=== PATIENT | male | born 1960 | race Caucasian/White ===

== ENCOUNTER 2016-06-10 16:06 | Emergency (ER) | payer OTHER ==
[~2016-06-10] VITALS: Ht 172.7 cm; Wt 96.0 kg
[~2016-06-10 16:06] MED LIST: AMLO5 PO; ASPI-110 PO; ATEN25TA PO; AZIT250T3 PO; BENA25TA3 PO; BENZ100 PO; FOLI1TAB4 PO; HYDR50TA94 PO; LIPI40TA PO; MEDR4PAK PO; OMEP20TA PO; POTA-163 PO; PRAV20TA2 PO; SERT-129 PO; TAMS5CAP PO
[2016-06-10 16:08] VITALS: BP 167/101; PULSE 89; RESP 18; TEMP 97.7; O2SAT 98
[2016-06-10 17:05] VITALS: BP 167/97; PULSE 85; RESP 16; O2SAT 97
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
[2016-06-10 17:52] LABS: AUTOMATED NEUTROPHIL # 1.7 TH/MM3 (1.8-7.7); BASOPHIL # 0.1 TH/MM3 (0-0.2); BASOPHIL % 1.4 % (0.0-2.0); EOSINOPHIL # 0.1 TH/MM3 (0-0.4); EOSINOPHIL % 1.1 % (0.0-4.0); HEMATOCRIT 38.4 % (39.0-51.0); HEMO FLAGS DIFF FINAL; LYMPH % 45.7 % (9.0-44.0); LYMPHOCYTE # 2.2 TH/MM3 (1.0-4.8); MEAN CELL VOLUME 89.7 FL (80.0-100.0); MEAN CORPUSCULAR HEMOGLOBIN 30.1 PG (27.0-34.0); MEAN CORPUSCULAR HGB CONC 33.5 % (32.0-36.0); MONO % 15.6 % (0.0-8.0); NEUT % 36.2 % (16.0-70.0); PLATELET COUNT 176 TH/MM3 (150-450); RED BLOOD COUNT 4.27 MIL/MM3 (4.50-5.90); WHITE BLOOD COUNT 4.7 TH/MM3 (4.0-11.0)
[2016-06-10 18:08] LABS: AMPHETAMINE, URINE NEG (NEG); BARBITURATES, URINE NEG (NEG); COCAINE, URINE NEG (NEG)
[2016-06-10 18:21] LABS: ANION GAP 11 MEQ/L (5-15)
[2016-06-10 18:26] LABS: ALKALINE PHOSPHATASE 58 U/L (45-117); ALT (GPT) 84 U/L (12-78); AST (GOT) 102 U/L (15-37); BICARBONATE 29.6 MEQ/L (21.0-32.0); BLOOD UREA NITROGEN 4 MG/DL (7-18); CHLORIDE 100 MEQ/L (98-107); GLOMERULAR FILTRATION RATE 103 ML/MIN (>89); POTASSIUM 3.3 MEQ/L (3.5-5.1); SODIUM (NA) 141 MEQ/L (136-145); TOTAL BILIRUBIN ADULT 0.3 MG/DL (0.2-1.0)
[2016-06-10] MEDS ORDERED: LORazepam 2 MG TAB PO PRN (19:00)
[2016-06-10] MEDS ORDERED: FLUMAZENIL 0.5 MG/5 ML VIAL IV PUSH PRN (19:00)
[2016-06-10] MEDS ORDERED: SODIUM CHLORIDE 0.9% FLUSH 5 ML FLUSH IV FLUSH PRN (19:00)
[2016-06-10] MEDS ORDERED: LORazepam 2 MG/ML VIAL IV PUSH PRN ×4 (19:00)
[2016-06-10] MEDS ORDERED: LORazepam 1 MG TAB PO PRN (19:00)
[2016-06-10] MEDS ORDERED: POTASSIUM CHLORIDE 20 MEQ CONTROLLED RELEASE TAB PO ONE (19:15)
[2016-06-10 20:20] VITALS: BP 159/93; PULSE 100; RESP 18; O2SAT 95
[2016-06-10] MEDS: SODIUM CHLORIDE 0.9% FLUSH 5 ML FLUSH IV FLUSH SCH (21:00)
[2016-06-11 01:41] VITALS: BP 153/87; PULSE 94; RESP 18; O2SAT 96
[2016-06-11 02:15] VITALS: BP 170/90; PULSE 96; RESP 18; TEMP 98.7; O2SAT 100
[2016-06-11 06:47] VITALS: BP 168/89; PULSE 95; RESP 17; O2SAT 97
[2016-06-11] MEDS: SODIUM CHLORIDE 0.9% FLUSH 5 ML FLUSH IV FLUSH SCH (09:00)
[2016-06-11 11:21] VITALS: BP 179/109; PULSE 98; RESP 18; TEMP 96.5; O2SAT 95
[2016-06-11] MEDS ORDERED: cloNIDine HCL 0.1 MG TAB PO STA (12:58)
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
== END 2016-06-11 14:35 | disposition home or self-care (01) ==
LOC: NEPA 16:06 → NEPJ 06-11 14:35
DX: F41.8 Other specified anxiety disorders (principal); F10.10 Alcohol abuse, uncomplicated; F10.129 Alcohol abuse with intoxication, unspecified; I10 Essential (primary) hypertension; F17.210 Nicotine dependence, cigarettes, uncomplicated; Y90.8 Blood alcohol level of 240 mg/100 ml or more
CPT/HCPCS: 80053; 80307; 80320; 85025; 99283